=== PATIENT | female | born 2000 | race Caucasian/White ===

== ENCOUNTER 2023-03-20 22:27 | Emergency (ER) | payer OTHER, SELFPAY ==
--- NOTE | ~2023-03-20 | CT_ITS ---
EXAMINATION: CT brain wo con DATE: 03/20/2023 23:50 INDICATION: Head injury. TECHNIQUE: Computed tomography (CT) of the head was performed without intravenous contrast. The mA wa s adjusted according to patient size. Iterative reconstruction technique was employed. The dose-lengt h product was 605.33 mGy-cm. COMPARISON: None FINDINGS: There is no intracranial hemorrhage, acute infarction, or abnormal intracranial mass lesion . The ventricles are normal in size. The orbits are normal. The paranasal sinuses are clear. The mast oid air cells are normal. IMPRESSION: 1. Normal brain. Reviewed, dictated and finalized at location A. IMPRESSION: 1. Normal brain.
--- NOTE | ~2023-03-20 | XR_ITS ---
EXAMINATION: XR chest 2V DATE: 03/20/2023 23:49 INDICATION: Syncope. Shortness of breath. TECHNIQUE: Frontal and lateral views of the chest were obtained. COMPARISON: None. FINDINGS: There is no pneumonia, pleural effusion, or pneumothorax. The heart size is normal. IMPRESSION: 1. No acute cardiopulmonary disease. Reviewed, dictated and finalized at location A.
--- NOTE | ~2023-03-20 | CT_ITS ---
EXAMINATION: CT facial bones wo con DATE: 03/20/2023 23:50 INDICATION: Head injury. TECHNIQUE: Computed tomography (CT) of the facial bones and maxillofacial region was performed withou t intravenous contrast. Automated exposure control and iterative reconstruction technique were employ ed. The dose-length product was 438.29 mGy-cm. COMPARISON: None. FINDINGS: There is rightward deviation of superior nasal septum and leftward deviation of inferior na julissa septum. No fracture. There is mild mucosal thickening in left maxillary sinus. The orbits are nor mal. IMPRESSION: 1. No fracture. Reviewed, dictated and finalized at location A. IMPRESSION: 1. No fracture.
[2023-03-20 22:29] VITALS: BP 121/69; PULSE 77; RESP 18; TEMP 36.5; O2SAT 100
[2023-03-20] MEDS: TETANUS,DIPHTHERIA,AC PERTUSSIS ADULT (0.5 ML) BOOSTRIX IM (23:27)
--- NOTE | 2023-03-20 23:43 | ED.FALL ---
HPI - Fall General Chief Complaint: Fall Stated Complaint: fall-facial injury Time Seen by Provider: 03/20/23 22:54 Source: patient Mode of arrival: ambulatory Limitations: no limitations History of Present Illness HPI Narrative: This is a 23 year old female that presents to the ER for a syncopal episode today. Reports she was talking to her friend and started to feel lightheaded and hot. Reports passing out and falling forward onto the tile. Reports one prior syncopal episode. Reports a headache. Reports fractured teeth and a laceration to her upper lip. She is not up to date on tetanus. Denies vision changes, vomiting, chest pain, shortness of breath, palpitations, numbness or weakness. Related Data Allergies Allergy/AdvReac Type Severity Reaction Status Date / Time No Known Allergies Allergy Verified 03/20/23 22:27 Review of Systems Review of Systems: CONSTITUTIONAL: Denies fever EYES: Denies visual changes CARDIOVASCULAR: Denies chest pain, palpitations RESPIRATORY: Denies dyspnea. GASTROINTESTINAL: Denies vomiting SKIN: Reports laceration MUSCULOSKELETAL: Denies back pain, joint pain, or myalgia. NEUROLOGIC: Reports headache. Denies numbness, or weakness. All systems reviewed & are unremarkable except as noted in HPI and below PMFSH Past Medical History Medical History (Updated 03/21/23 @ 01:52 by Audra Vidal PA-C) No active medical problems Social History Social History (Updated 03/20/23 @ 23:47 by Audra Vidal PA-C) Smoking status: Never smoker Exam Narrative: GENERAL: Well-appearing, well-nourished, and in no acute distress. HEAD: Normocephalic. Irregular laceration to the left side of the upper lip. Teeth 8 and 9 are fractured EYES: PERRLA and EOMI. ENT: Nares clear, no rhinorrhea or epistaxis. Mucous membranes moist. Oropharynx without tonsillar hypertrophy exudate or other lesions. Bilateral TMs pearly miller non-bulging NECK: Supple. No adenopathy or masses. No midline spinal tenderness CHEST: Clear to auscultation. No respiratory distress. No wheezes rales or rhonchi HEART: Regular rate and rhythm. No murmur heard. Normal peripheral pulses. EXTREMITIES: Normal range of motion. No edema or obvious deformity. Strength equal in bilateral upper and lower extremities (5/5) SKIN: Warm, dry, no rash. NEURO: No focal deficits. Alert and oriented x3. Cranial nerves II through XII grossly intact PSYCH: Normal mood and affect Course Course Emergency Course: Patient and family updated on workup and agree with plan of care Vital Signs Vital signs: Vital Signs Temperature 97.7 F 03/20/23 22:29 Pulse Rate 77 03/20/23 22:29 Respiratory Rate 18 03/20/23 22:29 Blood Pressure 121/69 03/20/23 22:29 Pulse Oximetry 100 03/20/23 22:29 Oxygen Delivery Room Air 03/20/23 22:29 Temperature 97.7 F 03/20/23 22:29 Pulse Rate 90 03/21/23 01:15 Respiratory Rate 18 03/20/23 22:29 Blood Pressure 124/74 03/21/23 01:15 Pulse Oximetry 100 03/20/23 22:29 Oxygen Delivery Room Air 03/20/23 22:29 Procedures Laceration Laceration 1: Date: 03/21/23 Time: 01:44 Site: lip Size (cm): 1 Description: irregular Depth: simple, single layer Local Anesthetic: lidocaine 1% Amount of anesthesia used (mL): 1 Pre-repair: wound explored ====== Skin Level ====== Skin layer closed with: other (fast absorbing gut) Size (cm): 5-0 Number of sutures: 4 Technique: simple, interrupted ====== Subcutaneous Layer ====== ====== Muscle Layer ====== ====== Tendon Layer ====== MDM - Fall [facility] Narrative Medical decision making narrative: Patient presents to the emergency department after syncopal episode today with head injury. She is afebrile and nontoxic-appearing. Her vitals are stable. She is neurologically intact. CBC and metabolic panel without concerning findings. EKG
[2023-03-21] MEDS: SODIUM CHLORIDE 0.9% IV 1,000 ML 999 ML IV CONT (00:15)
--- NOTE | 2023-03-21 00:15 | ECG_ITS ---
Measurements Intervals [place] Rate: 84 P: 27 MS: 157 QRS: 67 QRSD: 88 T: 22 QT: 357 QTc: 424 Interpretive Statements SINUS RHYTHM NORMAL ECG NO PREVIOUS ECG AVAILABLE FOR COMPARISON Electronically Signed On 03-21-2023 8:16:22 CDT by Jae Lake D.O.
[2023-03-21 00:29] LABS: Basophils Absolute Auto 0.1 K/mm3 (0.0-0.1); Basophils Percent Auto 0.6 % (0.2-1.2); Eosinophils Absolute Auto 0.1 K/mm3 (0-0.3); Eosinophils Percent Auto 1.2 % (0-4.4); Hematocrit 40.7 % (37.0-47.0); Immature Granulocyte Absolute 0.03 K/mm3 (0.00-0.031); Immature Granulocyte Percent A 0.3 % (0-0.5); Immature Platelet Fraction Pct 6.8 % (0.9-11.2); Lymphocytes Absolute Auto 1.32 K/mm3 (0.9-3.2); Mean Corpuscular HGB Conc 31.9 g/dl (32-36); Mean Corpuscular Hemoglobin 26.4 pg (26-34); Mean Corpuscular Volume 82.6 fl (80-100); Mean Platelet Volume 11.3 fl (7.4-10.4); Monocytes Absolute Auto 0.5 K/mm3 (0.1-0.6); Monocytes Percent Auto 4.7 % (2.6-8.5); Neutrophils Absolute Auto 8.1 K/mm3 (1.3-6.7); Neutrophils Percent Auto 80.2 % (45.5-73.1); Platelet Count Result 219 k/mm3 (150-375); Red Blood Count 4.93 M/mm3 (4.2-5.4); Red Cell Distribution Width 13.6 % (11.5-14.5); White Blood Count 10.1 K/mm3 (4.5-10.0)
[2023-03-21 00:32] LABS: Alanine Aminotransferase 16 U/L (6-35); Albumin Level 4.7 g/dL (3.5-5.1); Alkaline Phosphatase 52 U/L (38-126); Anion Gap 9 mmol/L (8-16); Aspartate Amino Transferase 26 U/L (14-36); Bilirubin,Total 0.4 mg/dL (0.2-1.3); Blood Urea Nitrogen 15 mg/dL (7-17); Calcium 9.3 mg/dL (8.4-10.2); Carbon Dioxide 24 mmol/L (22-30); Chloride 103 mmol/L (98-107); Estimated CRCL calculation 121 ml/min; Estimated Glomerular Filt Rate > 60; Glucose 130 mg/dL (65-110); Sodium 136 mmol/L (137-145)
[2023-03-21 00:43] LABS: Troponin I < 0.012 ng/mL (0.000-0.034)
[2023-03-21 01:14] VITALS: BP 129/69; BP 130/78; PULSE 81; PULSE 96
[2023-03-21 01:15] VITALS: BP 124/74; PULSE 90
[2023-03-21] MEDS: ACETAMINOPHEN 500 MG TABLET 1000 MG PO (01:42)
[2023-03-21 02:14] VITALS: BP 135/78
== END 2023-03-21 02:12 | disposition home or self-care (01) ==
PROVIDERS: Emergency Provider Physician Assistant
DX: R55 Syncope and collapse (principal); S01.511A Laceration without foreign body of lip, initial encounter; Z23 Encounter for immunization; W18.30XA Fall on same level, unspecified, initial encounter
CPT/HCPCS: 12011; 36415; 70450; 70486; 71046; 80053; 81025; 84484; 85025; 85055; 90471; 90715; 93005; 96360; 96361; 99284; A9270; J7030